=== PATIENT | female | born 1930 | race Caucasian/White ===

== ENCOUNTER 2016-07-06 10:39 | Emergency (ER) | payer MEDICARE, OTHER ==
[2016-07-06] MEDS ORDERED: Sodium Chloride 0.9% 10 ML Syringe FLUSH PRN (10:49)
[2016-07-06] MEDS ORDERED: Sodium Chloride 0.9% 1,000 ML IV ONE (10:51)
[2016-07-06 11:19] LABS: CHLORIDE,CL 101 mmol/L (98-107); SODIUM,NA 136 mmol/L (136-145)
[2016-07-06 12:51] VITALS: BP 100/50
--- NOTE | 2016-07-11 07:51 | ER ---
Date of Service: 07/06/2016 SUBJECTIVE: Caitlin presents to the emergency room, was receiving a therapeutic phlebotomy for hereditary hemochromatosis. She had approximately 500 mL of blood removed and the patient began experiencing some lightheadedness. Her vital signs were rechecked and the patient was found to have a blood pressure of 67/41. Nursing staff state that she was pale, diaphoretic, and clammy, but patient states that she was otherwise feeling okay. She did not have any loss of consciousness. She did not experience any chest pain or shortness of breath prior to, during, or after the therapeutic phlebotomy. The patient did take her antihypertensive medications which include lisinopril and sotalol prior to undergoing her therapeutic phlebotomy today. PAST MEDICAL HISTORY: 1. Hemochromatosis. 2. Hypertension. 3. Hypothyroidism. 4. Thrombocytopenia. 5. Hyperbilirubinemia. 6. Hyperglycemia. 7. Atrial fibrillation. MEDICATIONS: 1. Sotalol. 2. Xarelto. 3. Multivitamin. 4. Lisinopril. 5. Synthroid. 6. Glucosamine and chondroitin. 7. Vitamin D3. ALLERGIES: NKDA. REVIEW OF SYSTEMS: General: No fever or chills. HEENT: No sore throat, rhinorrhea, congestion. Respiratory: No shortness of breath. Cardiac: Denies any chest pain, orthopnea, PND, or increased peripheral edema. GI: No nausea, vomiting, or diarrhea. No melena, hematochezia, or hematemesis. : Denies any dysuria. Musculoskeletal: No myalgias or arthralgias. Neurologic: No decreased level of consciousness. She is alert and did not experience any syncope during this event. PHYSICAL EXAMINATION: General: This is an 85-year-old female patient, who is in no acute distress. Vital Signs: Initial blood pressure was 67/41, heart rate was 66, respiratory rate 28, O2 saturations 91% on room air. After she received approximately 500 mL of normal saline and was fed lunch, her blood pressure was 102/55 with a heart rate of 65. Skin: Warm, pale, and mildly diaphoretic. HEENT: Head is normocephalic, atraumatic. Eyes, PERRLA. Extraocular movements are intact. Mouth, oral mucosa is moist. Lungs: Clear to auscultation. Heart: Regular rate and rhythm. Abdomen: Soft and nontender. There is no hepatosplenomegaly noted. There is no mass noted. Extremities: Without edema. Neurologic: She is alert and oriented, answers all questions appropriately. Speech is fluent. Her gait is within normal limits. LABORATORY DATA: CBC was obtained. WBC is 11.0, hemoglobin is 14.0, platelets are 146. Coags, PT is 12.7, INR is 1.1. Chemistry, sodium is 136, potassium is 4.8, chloride is 101, bicarb is 25, BUN is 13, creatinine is 0.9. GFR is 60, glucose is 242, calcium is 8.6, corrected calcium is 9.48, total bilirubin is 2.0, AST is 27, ALT is 21, alkaline phosphatase is 71. Troponin is 0.017. Total protein is 7.7, albumin is 2.9. ASSESSMENT: Hypotension following therapeutic phlebotomy. PLAN: Again, the patient was given half a liter of normal saline and was fed lunch. She stated that she never did feel poorly during this event and wished to be discharged. She was advised to return to the emergency room if she develops any shortness of breath, lightheadedness, syncope, seizure activity, chest pain, or shortness of breath. All questions were answered. MWK: 07/10/2016 14:06:43 MODL: 07/10/2016 22:00:10 /[id number]
== END 2016-07-06 11:46 | disposition home or self-care (01) ==
LOC: VM.ED 10:39
DX: I95.9 Hypotension, unspecified (principal); I10 Essential (primary) hypertension; E03.9 Hypothyroidism, unspecified; R73.9 Hyperglycemia, unspecified; Z79.899 Other long term (current) drug therapy; E83.110 Hereditary hemochromatosis
CPT/HCPCS: 80053; 84484; 85025; 85610; 99195; 99284; J7030; 99283-GF

== ENCOUNTER 2019-11-23 15:09 | Inpatient (IN) | payer MEDICARE, OTHER ==
[2019-11-23] MEDS ORDERED: Diltiazem 50 MG/10 ML SDV IVPUSH ONE ×2 (15:29→17:11)
--- NOTE | 2019-11-23 15:41 | EDM.PDOC ---
ED HPI GENERAL MEDICAL PROBLEM - General Chief Complaint: Respiratory Problem Time Seen by Provider: 11/23/19 15:09 Source of Information: Reports: Patient History Limitations: Reports: No Limitations - History of Present Illness INITIAL COMMENTS - FREE TEXT/NARRATIVE: Pt. presents to ER via EMS. Apparently pt. had a fall today at her assisted living facility. Pt. was assessed by staff and was found to have a heartrate in the 140s. She has a history of atrial fib and is on sotalol for rate control and anticoagulated with xaralto. It is unclear if the patient is chronically in a- fib, as there are no EKGs on file. Pt. has a history of hereditary hemochromatosis and undergoes intermittent theraputic phlebotomy. It looks like this was last done in May. Pt. has Dr. Ash listed as her PCP, but she has not been seen in the clinic since May of 2018. Pt. states that she "feels fine", but appears quite short of breath with respiratory rate in the 30s-40s. Staff states that she is often short of breath in the AM, but seems more dyspneic this afternoon. Onset: Today Onset Date: 11/23/19 - Related Data Allergies Allergy/AdvReac Type Severity Reaction Status Date / Time No Known Allergies Allergy Verified 11/23/19 15:23 Home Meds: Home Meds Cholecalciferol (Vitamin D3) [Vitamin D3] 1,000 unit PO DAILY 06/15/15 [History] Glucosam/Chondr/Collagn/Hyalur [Glucosamine & Chondroitin Cap] 3 each PO DAILY 06/15/15 [History] Levothyroxine [Synthroid] 50 mcg PO ACBREAKFAST 06/15/15 [History] Lisinopril 5 mg PO DAILY 06/15/15 [History] Multivitamin [Multivitamins] 1 each PO DAILY 06/15/15 [History] Rivaroxaban [Xarelto] 20 mg PO DAILY 06/15/15 [History] Sotalol HCl [Sotalol] 1 tab PO DAILY 06/15/15 [History] Past Medical History HEENT History: Reports: Hard of Hearing Cardiovascular History: Reports: Hypertension Musculoskeletal History: Reports: Other (See Below) Other Musculoskeletal History: Uses a cane Hematologic History: Reports: Hemochromatosis - Past Surgical History Musculoskeletal Surgical History: Reports: None Social & Family History - Family History Family Medical History: Noncontributory ED ROS GENERAL - Review of Systems Review Of Systems: See Below Constitutional: Reports: No Symptoms HEENT: Reports: No Symptoms Respiratory: Reports: Shortness of Breath Cardiovascular: Reports: No Symptoms Endocrine: Reports: No Symptoms GI/Abdominal: Reports: No Symptoms : Reports: No Symptoms Musculoskeletal: Reports: No Symptoms Skin: Reports: No Symptoms Neurological: Reports: No Symptoms Psychiatric: Reports: No Symptoms Hematologic/Lymphatic: Reports: No Symptoms Immunologic: Reports: No Symptoms ED EXAM, GENERAL - Physical Exam Exam: See Below Exam Limited By: Other (hard of hearing) General Appearance: Alert, WD/WN, No Apparent Distress Eye Exam: Bilateral Eye: EOMI, PERRL Head: Atraumatic, Normocephalic Neck: Normal Inspection, Supple, Non-Tender Respiratory/Chest: No Accessory Muscle Use, Chest Non-Tender, Decreased Breath Sounds, Other (speaking in 2-4 work sentences) Cardiovascular: Irregularly Irregular Peripheral Pulses: 4+: Radial (L) GI/Abdominal: Soft, Non-Tender, No Distention, No Mass (Female) Exam: Deferred Rectal (Female) Exam: Deferred Back Exam: Normal Inspection, Full Range of Motion Extremities: Normal Inspection, Normal Range of Motion, Non-Tender, No Pedal Edema, Normal Capillary Refill Neurological: Alert, Oriented, CN II-XII Intact, Normal Cognition, Normal Gait, Normal Reflexes, No Motor/Sensory Deficits Psychiatric: Normal Affect, Normal Mood Skin Exam: Warm, Dry, Intact, Pallor Lymphatic: No Adenopathy EKG INTERPRETATION Rhythm: A-Fib Course - Orders/Labs/Meds Orders: Active Orders 24 hr Category Date Time Status Patient Status [ADT] Routine ADT 11/23/19 18:19 Active CULTURE BLOOD [BC] Stat Lab 11/23/19 15:58 Received CULTURE BLOOD [BC] Stat Lab 11/23/19 16:07 Received CULTURE URINE [RM] Stat Lab 11/23/19 17:48 Received Diltiazem 125 mg Med 11/23/19 17:15 Active Sodium Chloride 0.9% [Normal Saline] 100 ml IV TITRATE Sodium Chloride 0.9% [Saline Flush] Med 11/23/19 15:16 Active 10 ml FLUSH ASDIRECTED PRN Blood Culture x2 Reflex Set [OM.PC] Stat Oth 11/23/19 15:18 Ordered Peripheral IV Insertion Adult [OM.PC] Routine Oth 11/23/19 15:17 Ordered Medication Orders Diltiazem HCl 125 mg/ Sodium (Chloride) 125 mls @ 5 mls/hr IV TITRATE LO Last Admin: 11/23/19 17:29 Dose: 5 mg/hr, 5 mls/hr Documented by: BRANDAN Sodium Chloride (Saline Flush) 10 ml FLUSH ASDIRECTED PRN PRN Reason: Keep Vein Open Labs: Laboratory Tests 11/23/19 11/23/19 11/23/19 Range/Units 15:35 15:58 15:58 WBC 6.7 (4.0-10.0) x10^3/uL RBC 4.27 (4.00-5.50) x10^6/uL Hgb 12.9 (12.0-16.0) g/dL Hct 41.0 (33.0-47.0) % MCV 96.0 H D (78.0-93.0) fL MCH 30.2 (26.0-32.0) pg MCHC 31.5 L (32.0-36.0) g/dL RDW Coeff of Qi 16.8 H (10.0-15.0) % Plt Count 112 L (130-400) x10^3/uL Neut % (Auto) 77.8 (50.0-80.0) % Lymph % (Auto) 12.7 L (25.0-50.0) % [place] % (Auto) 8.5 (2.0-11.0) % Eos % (Auto) 0.7 (0.0-4.0) % Baso % (Auto) 0.3 (0.2-1.2) % PT 21.9 H (9.5-12.3) SEC INR 2.1 (2.0-3.5) POC ABG pH (7.35-7.45) pH POC ABG pCO2 (35-48) mmHg POC ABG pO2 (83-108) mmHg POC ABG HCO3 (21-28) mmol/L POC ABG Total CO2 (22-29) mmol/L POC ABG O2 Sat % POC ABG Base Excess (-2-3) mmol/L POC FiO2 Sodium (136-145) mmol/L Potassium (3.5-5.1) mmol/L Chloride (98-107) mmol/L Carbon Dioxide (21-32) mmol/L Anion Gap (10-20) mmol/L BUN (7-18) mg/dL Creatinine (0.55-1.02) mg/dL Est Cr Clr Drug Dosing Estimated GFR (MDRD) Glucose (74-106) mg/dL Lactic Acid (0.4-2.0) mmol/L Calcium (8.5-10.1) mg/dL Corrected Calcium (8.5-10.1) mg/dL Magnesium (1.8-2.4) mg/dL Ferritin (8-252) ng/mL Total Bilirubin (0.2-1.0) mg/dL AST (15-37) U/L ALT (14-59) U/L Alkaline Phosphatase (46-116) U/L Troponin I (<=0.056) ng/mL C-Reactive Protein (<=0.9) mg/dL NT-Pro-B Natriuret Pep (<=450) pg/mL Total Protein (6.4-8.2) g/dL Albumin (3.4-5.0) g/dL Globulin Albumin/Globulin Ratio Urine Color (YELLOW) Urine Appearance (CLEAR) Urine pH (5.0-8.0) Ur Specific [place] Urine Protein (NEGATIVE) mg/dL Urine Glucose (UA) (NEGATIVE) mg/dL Urine Ketones (NEGATIVE) mg/dL Urine Occult Blood (NEGATIVE) Urine Nitrite (NEGATIVE) Urine Bilirubin (NEGATIVE) Urine Urobilinogen (0.2) EU/dL Ur Leukocyte Esterase (NEGATIVE) Urine RBC (NOT SEEN) /HPF Urine WBC (NOT SEEN) /HPF Ur Squamous Epith Cells (NEGATIVE) /HPF Urine Bacteria (NEGATIVE) /HPF Urine Mucus (NEGATIVE) /LPF SARS CoV-2 RNA Rapid HECTOR Negative (NEGATIVE) 11/23/19 11/23/19 11/23/19 Range/Units 15:58 15:58 15:58 WBC (4.0-10.0) x10^3/uL RBC (4.00-5.50) x10^6/uL Hgb (12.0-16.0) g/dL Hct (33.0-47.0) % MCV (78.0-93.0) fL MCH (26.0-32.0) pg MCHC (32.0-36.0) g/dL RDW Coeff of Qi (10.0-15.0) % Plt Count (130-400) x10^3/uL Neut % (Auto) (50.0-80.0) % Lymph % (Auto) (25.0-50.0) % [place] % (Auto) (2.0-11.0) % Eos % (Auto) (0.0-4.0) % Baso % (Auto) (0.2-1.2) % PT (9.5-12.3) SEC INR (2.0-3.5) POC ABG pH (7.35-7.45) pH POC ABG pCO2 (35-48) mmHg POC ABG pO2 (83-108) mmHg POC ABG HCO3 (21-28) mmol/L POC ABG Total CO2 (22-29) mmol/L POC ABG O2 Sat % POC ABG Base Excess (-2-3) mmol/L POC FiO2 Sodium 141 (136-145) mmol/L Potassium 4.4 (3.5-5.1) mmol/L Chloride 102 (98-107) mmol/L Carbon Dioxide 29 (21-32) mmol/L Anion Gap 14.4 (10-20) mmol/L BUN 24 H (7-18) mg/dL Creatinine 1.1 H (0.55-1.02) mg/dL Est Cr Clr Drug Dosing TNP Estimated GFR (MDRD) 47 Glucose 283 H (74-106) mg/dL Lactic Acid 3.3 H* (0.4-2.0) mmol/L Calcium 8.8 (8.5-10.1) mg/dL Corrected Calcium 9.60 (8.5-10.1) mg/dL Magnesium 1.8 (1.8-2.4) mg/dL Ferritin 46 (8-252) ng/mL Total Bilirubin 2.6 H (0.2-1.0) mg/dL AST 26 (15-37) U/L ALT 20 (14-59) U/L Alkaline Phosphatase 88 (46-116) U/L Troponin I < 0.017 (<=0.056) ng/mL C-Reactive Protein 1.1 H (<=0.9) mg/dL NT-Pro-B Natriuret Pep 1205 H (<=450) pg/mL Total Protein 8.0 (6.4-8.2) g/dL Albumin 3.0 L (3.4-5.0) g/dL Globulin 5.0 Albumin/Globulin Ratio 0.60 Urine Color (YELLOW) Urine Appearance (CLEAR) Urine pH (5.0-8.0) Ur Specific [place] Urine Protein (NEGATIVE) mg/dL Urine Glucose (UA) (NEGATIVE) mg/dL Urine Ketones (NEGATIVE) mg/dL Urine Occult Blood (NEGATIVE) Urine Nitrite (NEGATIVE) Urine Bilirubin (NEGATIVE) Urine Urobilinogen (0.2) EU/dL Ur Leukocyte Esterase (NEGATIVE) Urine RBC (NOT SEEN) /HPF Urine WBC (NOT SEEN) /HPF Ur Squamous Epith Cells (NEGATIVE) /HPF Urine Bacteria (NEGATIVE) /HPF Urine Mucus (NEGATIVE) /LPF SARS CoV-2 RNA Rapid HECTOR (NEGATIVE) 11/23/19 11/23/19 Range/Units 16:10 17:48 WBC (4.0-10.0) x10^3/uL RBC (4.00-5.50) x10^6/uL Hgb (12.0-16.0) g/dL Hct (33.0-47.0) % MCV (78.0-93.0) fL MCH (26.0-32.0) pg MCHC (32.0-36.0) g/dL RDW Coeff of Qi (10.0-15.0) % Plt Count (130-400) x10^3/uL Neut % (Auto) (50.0-80.0) % Lymph % (Auto) (25.0-50.0) % [place] % (Auto) (2.0-11.0) % Eos % (Auto) (0.0-4.0) % Baso % (Auto) (0.2-1.2) % PT (9.5-12.3) SEC INR (2.0-3.5) POC ABG pH 7.32 L (7.35-7.45) pH POC ABG pCO2 57 H (35-48) mmHg POC ABG pO2 65 L (83-108) mmHg POC ABG HCO3 29.1 H (21-28) mmol/L POC ABG Total CO2 29.0 (22-29) mmol/L POC ABG O2 Sat 89.8 % POC ABG Base Excess 3 (-2-3) mmol/L POC FiO2 0.21 Sodium (136-145) mmol/L Potassium (3.5-5.1) mmol/L Chloride (98-107) mmol/L Carbon Dioxide (21-32) mmol/L Anion Gap (10-20) mmol/L BUN (7-18) mg/dL Creatinine (0.55-1.02) mg/dL Est Cr Clr Drug Dosing Estimated GFR (MDRD) Glucose (74-106) mg/dL Lactic Acid (0.4-2.0) mmol/L Calcium (8.5-10.1) mg/dL Corrected Calcium (8.5-10.1) mg/dL Magnesium (1.8-2.4) mg/dL Ferritin (8-252) ng/mL Total Bilirubin (0.2-1.0) mg/dL AST (15-37) U/L ALT (14-59) U/L Alkaline Phosphatase (46-116) U/L Troponin I (<=0.056) ng/mL C-Reactive Protein (<=0.9) mg/dL NT-Pro-B Natriuret Pep (<=450) pg/mL Total Protein (6.4-8.2) g/dL Albumin (3.4-5.0) g/dL Globulin Albumin/Globulin Ratio Urine Color Dark yellow H (YELLOW) Urine Appearance Cloudy H (CLEAR) Urine pH 5.5 (5.0-8.0) Ur Specific [place] >=1.030 Urine Protein 100 H (NEGATIVE) mg/dL Urine Glucose (UA) Negative (NEGATIVE) mg/dL Urine Ketones Negative (NEGATIVE) mg/dL Urine Occult Blood Moderate H (NEGATIVE) Urine Nitrite Positive H (NEGATIVE) Urine Bilirubin Small H (NEGATIVE) Urine Urobilinogen 1.0 (0.2) EU/dL Ur Leukocyte Esterase Negative (NEGATIVE) Urine RBC 20-30 H (NOT SEEN) /HPF Urine WBC 0-5 (NOT SEEN) /HPF Ur Squamous Epith Cells Occasional H (NEGATIVE) /HPF Urine Bacteria Many H (NEGATIVE) /HPF Urine Mucus Few H (NEGATIVE) /LPF SARS CoV-2 RNA Rapid HECTOR (NEGATIVE) Meds: Medications Generic Name Dose Route Start Last Admin Trade Name Leeroy PRN Reason Stop Dose Admin Diltiazem HCl 125 mg/ Sodium 125 mls @ 5 mls/hr 11/23/19 17:15 11/23/19 17:29 Chloride IV 5 mg/hr TITRATE LO 5 mls/hr Administration 5 MG/HR Sodium Chloride 10 ml 11/23/19 15:16 Saline Flush FLUSH ASDIRECTED PRN Keep Vein Open Discontinued Medications Generic Name Dose Route Start Last Admin Trade Name Fremike PRN Reason Stop Dose Admin Ceftriaxone Sodium 1 gm 11/23/19 18:06 Rocephin IVPUSH 11/23/19 18:07 STAT ONE Diltiazem HCl 20 mg 11/23/19 15:29 11/23/19 15:42 Cardizem IVPUSH 11/23/19 15:30 20 mg ONETIME ONE Administration Diltiazem HCl 20 mg 11/23/19 17:11 Cardizem IVPUSH 11/23/19 17:12 ONETIME ONE Furosemide 40 mg 11/23/19 18:17 Lasix IV 11/23/19 18:18 ONETIME ONE Methylprednisolone Sodium Succinate 125 mg 11/23/19 17:42 Solu-Medrol IV 11/23/19 17:43 ONETIME ONE - Radiology Interpretation Free Text/Narrative:: cardiomegaly, mild failure pattern Departure - Departure Time of Disposition: 19:04 Disposition: Admitted As Inpatient 68 Clinical Impression: Atrial fibrillation with RVR, UTI (urinary tract infection), CHF (congestive heart failure), COPD exacerbation - Discharge Information Referrals: Bushra Ash DO [Primary Care Provider] - Forms: ED Department Discharge - Problem List Review Problem List Initiated/Reviewed/Updated: Yes - My Orders Last 24 Hours: My Active Orders 11/23/19 15:16 Sodium Chloride 0.9% [Saline Flush] 10 ml FLUSH ASDIRECTED PRN 11/23/19 15:17 Peripheral IV Insertion Adult [OM.PC] Routine 11/23/19 15:18 Blood Culture x2 Reflex Set [OM.PC] Stat 11/23/19 15:58 CULTURE BLOOD [BC] Stat 11/23/19 16:07 CULTURE BLOOD [BC] Stat 11/23/19 17:15 Diltiazem 125 mg Sodium Chloride 0.9% [Normal Saline] 100 ml IV TITRATE 11/23/19 17:48 CULTURE URINE [RM] Stat 11/23/19 18:19 Patient Status [ADT] Routine - Assessment/Plan Last 24 Hours: My Active Orders 11/23/19 15:16 Sodium Chloride 0.9% [Saline Flush] 10 ml FLUSH ASDIRECTED PRN 11/23/19 15:17 Peripheral IV Insertion Adult [OM.PC] Routine 11/23/19 15:18 Blood Culture x2 Reflex Set [OM.PC] Stat 11/23/19 15:58 CULTURE BLOOD [BC] Stat 11/23/19 16:07 CULTURE BLOOD [BC] Stat 11/23/19 17:15 Diltiazem 125 mg Sodium Chloride 0.9% [Normal Saline] 100 ml IV TITRATE 11/23/19 17:48 CULTURE URINE [RM] Stat 11/23/19 18:19 Patient Status [ADT] Routine Plan: Pt. will be admitted to [facility]. Unable to get a bed at [facility] or [facility] as they are both on diversion. Pt. will be admitted by Dr. Pop. She is a code 2, DNR/DNI. Pt. was given 20mg cardiazem twice for rate control. She was subsequently started on a cardiazem drop at 5mg/hr. She was given rocephin 1000mg IV. She was given solu medrol 125mg IV. All questions were answered.
--- NOTE | 2019-11-23 15:52 | CR ---
[id number] RAD/RAD Chest PA or AP 1V EXAM: FRONTAL CHEST INDICATION: SHORTNESS OF BREATH. COMPARISON: March 27, 2015. DISCUSSION: Cardiomegaly with new or increased mild central vascular congestion. Possible minimal bilateral pleural effusions. Low lung volumes. No focal infiltrates are identified. IMPRESSION: 1. Cardiomegaly with borderline central vascular congestion and possible minimal bilateral effusions. Raymundo Matos MD 11/23/19 155 Thank you for allowing us to participate in the care of your patient.
[2019-11-23 16:24] LABS: PCO2 ARTERIAL,POC 57 mmHg (35-48)
[2019-11-23 16:50] LABS: ANION GAP 14.4 mmol/L (10-20); CHLORIDE,CL 102 mmol/L (98-107); SODIUM,NA 141 mmol/L (136-145)
[2019-11-23] MEDS ORDERED: Diltiazem 125 MG in Sodium Chloride 0.9% 100 ML IV SCH (17:15)
[2019-11-23] MEDS ORDERED: methylPREDNISolone Sodium Succinate 125 MG/2 ML SDV IV ONE (17:42)
[2019-11-23] MEDS ORDERED: cefTRIAXone 1 GM Vial IVPUSH ONE (18:06)
[2019-11-23] MEDS ORDERED: Furosemide 40 MG/4 ML VIAL IV ONE (18:17)
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
[2019-11-23] MEDS: Sotalol 80 MG Tab PO SCH (21:01)
[2019-11-23] MEDS ORDERED: Hypromellose 0.3% Ophth Soln 15 ML Bottle EYEBOTH PRN (23:02)
[2019-11-24 07:15] LABS: HEMOGLOBIN A1C 8.5 % (<5.7)
[2019-11-24 07:41] LABS: ANION GAP 11.7 mmol/L (10-20); CHLORIDE,CL 102 mmol/L (98-107); SODIUM,NA 140 mmol/L (136-145)
[2019-11-24] MEDS ORDERED: Insulin Lispro 100 Units/ML 3 ML Vial SUBCUT ONE (07:43)
[2019-11-24] MEDS ORDERED: Sotalol 80 MG Tab PO SCH (08:00)
[2019-11-24] MEDS ORDERED: EYE EYEBOTH SCH (08:00)
[2019-11-24] MEDS ORDERED: TIMOLOL EYEBOTH SCH (08:00)
[2019-11-24] MEDS ORDERED: BRIMONIDINE EYEBOTH SCH (08:00)
[2019-11-24] MEDS: Rivaroxaban 10 MG Tab PO SCH (08:55)
[2019-11-24] MEDS: Lisinopril 5 MG Tab PO SCH (08:55)
[2019-11-24] MEDS: Sotalol 80 MG Tab PO SCH (08:55)
--- NOTE | 2019-11-24 09:10 | CR ---
[id number] RAD/RAD Chest PA or AP 1V EXAM: SINGLE VIEW CHEST. INDICATION: FOLLOW-UP CHF COMPARISON: CORRELATION IS MADE WITH 2019 FINDINGS: The lungs are clear The cardiac silhouette is stable IMPRESSION: NO PNEUMONIA OR EDEMA CURRENTLY Ramiro Watt MD 11/24/19 0908 Thank you for allowing us to participate in the care of your patient.
[2019-11-24] MEDS: Sodium Chloride 0.9% 10 ML Syringe FLUSH PRN ×3 (10:33→20:16)
[2019-11-24] MEDS: Brimonidine 0.2% Ophth Soln 5 ML Bottle EYEBOTH SCH ×2 (10:33→20:13)
[2019-11-24] MEDS: Furosemide 20 MG/2 ML VIAL IV SCH ×2 (10:33→16:48)
[2019-11-24] MEDS: Timolol Maleate 0.5% Ophth Soln 5 ML Bottle EYEBOTH SCH ×2 (10:34→20:15)
[2019-11-24] MEDS: glipiZIDE 5 MG Tab PO SCH ×2 (10:35→17:34)
[2019-11-24] MEDS: Amiodarone 200 MG Tab PO SCH ×3 (10:35→21:35)
[2019-11-24] MEDS: Dorzolamide 2% Ophth Soln 10 ML Bottle EYEBOTH SCH ×2 (10:46→20:15)
[2019-11-24] MEDS ORDERED: Insulin Lispro 100 Units/ML 3 ML Vial SUBCUT SCH (11:00)
--- NOTE | 2019-11-24 17:18 | PN ---
Progress Note for XIN CONDE Date: 11/24/2019 Room #: VM.216 SUBJECTIVE: This is hospital day #2 on an 89-year-old admitted with shortness of breath and AFib with RVR which was discovered after she was found down on the ground in her apartment. She said a friend told her she should start exercising and she got into a position and really could not get back up, so it is unclear if she fell or got herself onto the ground, but she was there possibly an hour or 2 when her assisted living staff found her. She was actually upset to be brought over to the hospital, but her heart rates were in the 140s. She was having respiratory distress. They gave her 125 of Solu-Medrol and placed her on Cardizem drip after giving her 20 mg x2 of IV Cardizem, but still her heart rates remained in the 120s. This morning, she is in obvious respiratory distress, taking quick shallow breaths, but she denies coughing. She denies fever. She denies any burning with urination. She was started on Rocephin due to abnormal UA and her culture is showing some gram-negatives. Otherwise up until yesterday when this occurred, she had been feeling well. They check her vitals once a month at [facility] and there have not been any concerns. She does have underlying hemochromatosis, but has not required any phlebotomy since March. The patient is a nonsmoker. She does have a known history of AFib. She otherwise has been noncompliant in the past with blood pressure medication. She has never taken medications for diabetes, although she has known diabetes. She has no history of asthma or lung disease. Her weight is 90.5 kg. It should be noted she also did get some IV Lasix, but had not noticed any edema or weight gain, but admits she maybe is a little bit more puffy in the stomach. OBJECTIVE: Vital Signs: Temperature 97.9, pulse 122, blood pressure 116/78, respiratory rate was 30, and her O2 was 93 on 2 L. General: She is in mild distress. She is trying to talk, but she cannot speak in full sentences. Heart: Irregularly irregular. Lungs: Her lung sounds are decreased in the bases, but clear in the upper lungs. There are no crackles or wheezes though appreciated. Abdomen: Nondistended, nontender. Extremities: Warm and dry, just trace edema at the ankles. Mental Status: She is alert. She is orientated x3. She is recognizing me. She is talking about playing cards and other people who live at her assisted living facility. DIAGNOSTIC DATA: It should be noted the patient did have an echo in 12/2018 which did show her to have an EF of 60% to 65%. She does have some mild aortic stenosis and fdbz-co-uoywhdvk agitation. She also has underlying severe pulmonary hypertension. I did not appreciate a cardiac murmur today, but I have heard it in the past. Lab work did show white count 6.1, hemoglobin 12.1, platelets 107. INR is 2.1. The patient is on Xarelto. Yesterday, pCO2 was 57, PO2 of 65. Sodium 140, potassium 4.7, chloride 102, bicarb 31, BUN 27, creatinine 1.1, glucose 333. Lactic down to 2.8 last night, it was not repeated this morning. Calcium 9.5, bilirubin 1.4, AST 26, ALT 21, alkaline phosphatase 78. Troponin negative x2. CRP 1.2, albumin 2.8, TSH 2.4. Urine had 20 to 30 rbc's, but 0-5 wbc's, but positive nitrite. SARS testing negative. Blood cultures negative. Influenza negative. Urine gram-negative rods greater than 100,000. ASSESSMENT: 1. Rgfcb-gx-ygdbxwj diastolic heart failure exacerbation, likely exacerbated by the atrial fibrillation with rapid ventricular response. The patient has a known EF of 60% to 65%. 2. Acute hypoxic respiratory failure secondary to heart failure and also atrial fibrillation with rapid ventricular rate and underlying pulmonary hypertension. The patient has no history of needing oxygen. 3. Gram-negative urinary tract infection. She is on IV Rocephin. 4. Hereditary hemochromatosis. Her recent ferritin was under 50. No indication for transfusion. 5. Hypothyroidism, treated. TSH is normal. 6. Type 2 diabetes with hyperglycemia. She prefers not to use insulin. We will try her on some oral glipizide since she is medication naive. 7. Essential hypertension. Her blood pressures are under good control. We will try to avoid hypotension. We will continue her SULEIMAN inhibitor for now, but may need to hold it if she becomes too hypotensive. 8. Atrial fibrillation with rapid ventricular response. We will stop the Cardizem drip due to her acute heart failure. I will stop her sotalol and place her on amiodarone 400 mg twice daily. The patient is not wheezing. She does not require any further IV steroids. This is likely contributing to her hyperglycemia. 9. Mild Anemia hemoglobin is stable with no signs of bleeding 10. Palliative cares patient says she is ready to go meet Jose PLAN: Switch her over to oral amiodarone. Continue with telemetry. Continue diuresis with 20 mg IV b.i.d. of Lasix. Repeat lab work tomorrow. Consider BiPAP if patient gets too tired and in more respiratory distress if she is able to tolerate it. This will likely also help with her heart rates. We will get a bladder scan to ensure that she is emptying her bladder (her scan was ok around 100 ml). We will continue antibiotics for now. MKA: 11/24/2019 16:30:12 MODL: 11/24/2019 17:01:41 /[id number] MIKE
[2019-11-24] MEDS: cefTRIAXone 1 GM Vial IVPUSH SCH (17:35)
[2019-11-24] MEDS: NETARSUDIL MESYLATE EYEBOTH SCH (20:16)
[2019-11-25 07:09] LABS: ANION GAP 9.4 mmol/L (10-20)
[2019-11-25] MEDS: Digoxin 500 MCG/2 ML Amp IVPUSH SCH ×3 (09:10→19:49)
[2019-11-25] MEDS: Amiodarone 200 MG Tab PO SCH ×2 (09:10→19:39)
[2019-11-25] MEDS: Lisinopril 5 MG Tab PO SCH (09:11)
[2019-11-25] MEDS: glipiZIDE 5 MG Tab PO SCH ×2 (09:11→18:17)
[2019-11-25] MEDS: Rivaroxaban 10 MG Tab PO SCH (09:12)
[2019-11-25] MEDS: Timolol Maleate 0.5% Ophth Soln 5 ML Bottle EYEBOTH SCH ×2 (09:13→19:36)
[2019-11-25] MEDS: Dorzolamide 2% Ophth Soln 10 ML Bottle EYEBOTH SCH ×2 (09:13→19:58)
[2019-11-25] MEDS: Brimonidine 0.2% Ophth Soln 5 ML Bottle EYEBOTH SCH ×2 (09:13→19:39)
[2019-11-25] MEDS: Sodium Chloride 0.9% 10 ML Syringe FLUSH PRN ×4 (09:13→19:49)
[2019-11-25] MEDS: cefTRIAXone 1 GM Vial IVPUSH SCH (18:17)
[2019-11-25] MEDS: NETARSUDIL MESYLATE EYEBOTH SCH (19:39)
--- NOTE | 2019-11-25 19:42 | PN ---
Progress Note for XIN CONDE Date: 11/25/2019 Room #: VM.216 SUBJECTIVE: This is hospital day #3 on an 89-year-old admitted with respiratory distress with AFib and RVR and a heart failure exacerbation. Yesterday, she was stopped on her sotalol and Cardizem drip and initiated on oral amiodarone 400 b.i.d. Her heart rates went from the 120s to 140s, now to the 105 to 120 range. She is symptomatically less short of breath, able to talk in more complete sentences. She was also given IV Lasix 20 mg in the morning, but then had hypotension even down to 80 systolic later in the day, so further IV Lasix was held, but she did not require any IV fluids. She has been weaned down to 2 L of oxygen. She is denying any chest pain. She did use and tolerate some BiPAP overnight. She has no history of COPD or smoking. The patient was actually feeling like she might pass on and meet Jose yesterday. Otherwise, she has been afebrile. Urine culture did come back E coli. She has been receiving IV Rocephin. She is eating and tolerating a diet. She has had a bowel movement. OBJECTIVE: Vital Signs: Her temperature is 97.3. Her weight is 99.79 kg. Her pulse is 113. Her blood pressure is 94/70, respiratory rate 18, and O2 of 93% on 2 L. General: She is in no acute distress. Heart: Irregularly irregular with tachycardia. Lungs: Sounds are more clear to auscultation bilaterally without crackles or wheezes appreciated in her bases like yesterday. Abdomen: Has positive bowel sounds. It is soft, nontender. Extremities: Warm and dry. Just trace edema. Mental Status: She is alert. She is oriented x3. She is slightly eccentric at times, but I have known her for years and this is her norm. LABORATORY WORK: Does show white count at 10.2, this is up slightly from 6.1; hemoglobin 11.7, which is down slightly from 12.1, platelets down to 97. She does have a history of mild thrombocytopenia. INR was 2.1 on admission. She has been on Xarelto. Her sodium was 140, potassium 4.4, chloride 102, bicarb 33, BUN 43, creatinine 1.4, increased, glucose 199, lactic acid down to 1.7, and calcium 8.4. ASSESSMENT: 1. Acute hypoxic respiratory failure due to atrial fibrillation with rapid ventricular response and heart failure. Troponins have been negative. She has a known EF of 60% to 65% at [facility] last year. We will hold off on further intravenous Lasix given her hypotension. If blood pressures are below 100, we are holding her lisinopril. We will give her a saline bolus if she goes below 80. She has not been symptomatic from hypotension. 2. Acute on chronic diastolic heart failure exacerbation. The patient has diuresed with some intravenous Lasix. I believe her weight was put in as an error this morning because she has been around 90 kg and she is symptomatically improving. 3. Escherichia coli urinary tract infection. She will continue intravenous Rocephin. Likely, can switch over to orals tomorrow. 4. Atrial fibrillation with rapid ventricular response. She is still tachycardic despite the oral amiodarone. I will go ahead and give her intravenous digoxin and start on oral digoxin tomorrow. 5. Hereditary hemochromatosis. Her ferritin was less than 50. No indication for phlebotomy. 6. Hypothyroidism. TSH normal. 7. Type 2 diabetes with hyperglycemia. She was refusing further insulin. Her blood sugars are coming down on the glipizide. We will continue with the same. 8. Acute renal failure, probably due to hypotension and diuresis. We will repeat kidney function tomorrow. 9. Essential hypertension. Blood pressures are low. We will hold lisinopril if under 100. 10.Mild anemia and thrombocytopenia. We will continue to monitor blood counts. 11.Palliative care. PLAN: At this point, the patient will continue oral amiodarone. We will add IV digoxin. We will continue monitoring with telemetry. We will hold off on further diuresis and repeat lab work tomorrow. She will use BiPAP during the night again to help with rest and respiratory status. Otherwise, we will continue IV Rocephin. I will get her up and working with therapies. I anticipate she will need at least another 1- to 2-night stay. MKA: 11/25/2019 18:43:58 MODL: 11/25/2019 19:31:34 /[id number]
[2019-11-26 07:32] LABS: ANION GAP 9.6 mmol/L (10-20)
[2019-11-26] MEDS: Timolol Maleate 0.5% Ophth Soln 5 ML Bottle EYEBOTH SCH ×2 (08:00→19:36)
[2019-11-26] MEDS: Brimonidine 0.2% Ophth Soln 5 ML Bottle EYEBOTH SCH ×2 (08:00→19:40)
[2019-11-26] MEDS: Dorzolamide 2% Ophth Soln 10 ML Bottle EYEBOTH SCH ×2 (08:00→19:36)
[2019-11-26] MEDS: Rivaroxaban 10 MG Tab PO SCH (08:01)
[2019-11-26] MEDS: glipiZIDE 5 MG Tab PO SCH ×2 (08:01→18:36)
[2019-11-26] MEDS: Digoxin 125 MCG Tab PO SCH (08:01)
[2019-11-26] MEDS: Amiodarone 200 MG Tab PO SCH ×2 (08:01→19:37)
[2019-11-26] MEDS: Lisinopril 5 MG Tab PO SCH (08:01)
[2019-11-26] MEDS: Furosemide 20 MG/2 ML VIAL IV SCH (09:33)
[2019-11-26] MEDS: Sodium Chloride 0.9% 10 ML Syringe FLUSH PRN ×2 (09:33→19:38)
--- NOTE | 2019-11-26 12:03 | PN ---
Progress Note for XIN CONDE Date: 11/26/2019 Room #: VM.216 SUBJECTIVE: This is hospital day #4 on an 89-year-old admitted after being found down at her assisted living with respiratory distress, then atrial fibrillation and RVR. She was afebrile, but had a positive UA. She has been on IV Rocephin. Her white count had increased up to 10 yesterday, but is now normal today. She is tolerating an oral diet. She was also given IV Lasix, but it has been held yesterday due to lower blood pressures around 90 systolic. This morning, her blood pressure is much better and she is still short of breath. She denies that she is having any significant problems. She did sleep with the BiPAP last night and she seems to tolerate that well. She denies cough. She prefers to sleep in the chair, but she states that is a habit for her like at 5 o'clock in the morning. The patient was initiated on IV digoxin yesterday and was seeing some halos after getting IV doses. She got a 750 mcg load. She got the oral this morning. Heart rates are now consistently under 110, in that 90-110 range, whereas before they were 110 to 120s and even 140s when she was up moving around or talking. The patient did work a little bit with PT in her room yesterday. She reports not having a bowel movement yet, although 1 was charted yesterday. OBJECTIVE: Vital Signs: Blood pressure is 133/72, heart rate 110, weight 98.5 kg, respiratory rate 18, O2 of 97% on 2 L. General: She is in no acute distress. Heart: Regularly irregular with murmur noted. Lungs: Sounds are decreased with crackles in both bases. Abdomen: Positive bowel sounds. Soft, nontender. Extremities: Warm and dry. Just trace edema Mental Status: Alert and orientated x3. She is able to speak in full sentences. LABORATORY RESULTS: Include white count 7.1, hemoglobin 12.8, platelets stable at 99. Sodium 140, potassium 4.6, chloride 102, bicarb 33, BUN 35, creatinine down to 1.2, glucose 222. ALT and AST normal. Albumin down to 2.7. ASSESSMENT AND PLAN: 1. Atrial fibrillation with rapid ventricular rates with improved rate control on amiodarone and digoxin, both oral. We will continue to monitor. 2. Acute hypoxic respiratory failure due to diastolic heart failure and atrial fibrillation. The patient will continue acute treatment. She needs some IV Lasix 20 mg today. 3. Acute on chronic diastolic heart failure, known EF 60% to 65% at [facility] in 11/2018. 4. Escherichia coli urinary tract infection. We will switch her over to oral Ceftin today to complete a 5-day course of antibiotics. 5. Hereditary hemochromatosis. She does not require any phlebotomy. 6. Hypothyroidism with normal TSH. 7. Type 2 diabetes with hyperglycemia. She is on glipizide. Blood sugars are improving. 8. Acute renal failure, probably due to hypotension and diuresis. Creatinine improved. We will recheck tomorrow. 9. Essential hypertension. Blood pressures are now under improved control. She is on lisinopril. She will get some IV Lasix. 10.Mild anemia and thrombocytopenia, stable. We will continue to monitor blood counts. 11.Palliative Care. Plan at this point; the patient will continue on acute cares with oral amiodarone and digoxin. She will be switched over to oral antibiotics. She will get some IV Lasix today. She may continue the BiPAP at night. She has no history of COPD, but did have some CO2 retention on admission. Clinically, she is improving. We will get her up and working with therapies and likely will be ready for transition over to a swing bed stay as soon as tomorrow. Xarelto is in place for her DVT prophylaxis and stroke prophylaxis. MKA: 11/26/2019 11:14:38 MODL: 11/26/2019 11:56:47 /[id number]
--- NOTE | 2019-11-26 14:10 | CR ---
[id number] RAD/RAD Chest PA And Lateral EXAM: RAD Chest PA And Lateral INDICATION: SHORT OF BREATH. COMPARISON: November 24, 2019. DISCUSSION: The heart is enlarged. Central pulmonary vascular congestion with patchy airspace opacification bilaterally. No pleural effusion. IMPRESSION: Findings most consistent with CHF exacerbation. Jerome Saleem DO 11/26/19 1408 Thank you for allowing us to participate in the care of your patient.
[2019-11-26] MEDS: Cefuroxime 250 MG Tab PO SCH (19:37)
[2019-11-26] MEDS: NETARSUDIL MESYLATE EYEBOTH SCH (19:37)
[2019-11-27 06:40] LABS: ANION GAP 6.3 mmol/L (10-20)
[2019-11-27] MEDS: Amiodarone 200 MG Tab PO SCH (08:01)
[2019-11-27] MEDS: Rivaroxaban 10 MG Tab PO SCH (08:02)
[2019-11-27] MEDS: Cefuroxime 250 MG Tab PO SCH (08:02)
[2019-11-27] MEDS: Furosemide 20 MG/2 ML VIAL IV SCH (08:02)
[2019-11-27] MEDS: Digoxin 125 MCG Tab PO SCH (08:03)
[2019-11-27] MEDS: glipiZIDE 5 MG Tab PO SCH (08:06)
[2019-11-27] MEDS: Lisinopril 5 MG Tab PO SCH (08:07)
[2019-11-27] MEDS: Brimonidine 0.2% Ophth Soln 5 ML Bottle EYEBOTH SCH (08:41)
[2019-11-27] MEDS: Timolol Maleate 0.5% Ophth Soln 5 ML Bottle EYEBOTH SCH (08:42)
[2019-11-27] MEDS: Dorzolamide 2% Ophth Soln 10 ML Bottle EYEBOTH SCH (08:42)
[2019-11-27 15:48] VITALS: BP 127/87; PULSE 86
[2019-11-28] MEDS ORDERED: glipiZIDE 5 MG Tab PO SCH (08:00)
--- NOTE | 2019-11-29 13:51 | DISCH ---
PRIMARY DISCHARGE DIAGNOSES: 1. Acute on chronic heart failure exacerbation with known ejection fraction of 60% to 65% in 11/2018 at [facility]. 2. Atrial fibrillation with rapid ventricular response with known history of atrial fibrillation. 3. Type 2 diabetes, not on medications previously, with hyperglycemia due to steroids. Blood sugars improved around 200 on oral glipizide. 4. Acute hypoxic respiratory failure with hypercapnia due to the heart failure and atrial fibrillation. 5. Escherichia coli urinary tract infection treated with a 5-day course of antibiotics, initially intravenous Rocephin. 6. Obesity. REASON FOR ADMISSION: On the date of admission, this 89-year-old female was found on the floor in her apartment. She got down on the ground somehow and could not get back up. She was there potentially for 2 hours. She was having more wheezing. She received some Solu-Medrol and nebs in the ER, which did improve her breathing. However, her heart rates were found to be fast at the 140s. She got IV Cardizem x2 and was started on a Cardizem drip along with her sotalol. However, her symptoms did not improve. The patient also received IV Lasix as her chest x-ray was showing some fluid congestion, but then became quite hypotensive, so diuresis was held, but was able to be re-initiated yesterday. She had good urine output. Repeat chest x-ray was showing improvement in her fluid. She was able to be weaned down on oxygen. She did not require any BiPAP last night. The patient is eating well, tolerating a diet. Heart rates are all in the 110 or less rate, now on telemetry. DISCHARGE PLANS AND INSTRUCTIONS: The patient is going over to swing bed for further therapies. She was also initiated on oral amiodarone and IV digoxin and sotalol was stopped. We will repeat lab work on Saturday. She will otherwise continue her Xarelto for DVT prophylaxis. Her blood counts were all monitored. She was not anemic, but had stable thrombocytopenia. PHYSICAL EXAMINATION: Discharging Vitals: Include a temperature of 97.9, pulse 97, blood pressure 128/76, respiratory rate 18, and O2 of 97% on 2 L. General: She is in no acute distress. Heart: Irregularly irregular. Lungs: Sounds are slightly decreased in the bases, but overall improved from yesterday. No crackles. No wheezes. Abdomen: Nondistended, nontender. Extremities: Warm and dry. Just trace edema at the ankles. Mental Status: She is alert and oriented x3. She is able to speak in full sentences. Greater than 30 minutes spent on this discharge process. MKA: 11/27/2019 15:32:09 MODL: 11/27/2019 21:09:54 /[id number]
== END 2019-11-27 13:30 | disposition home or self-care (01) | DRG 291 ==
LOC: VM.ED 15:09 → SUPCPDRO 15:09 → VM.MS 18:50
PROVIDERS: ADMIT Family Medicine; ATTEND Internal Medicine
DX: I11.0 Hypertensive heart disease with heart failure (principal); J96.01 Acute respiratory failure with hypoxia; J96.02 Acute respiratory failure with hypercapnia; J44.1 Chronic obstructive pulmonary disease with (acute) exacerbation; N39.0 Urinary tract infection, site not specified; H91.90 Unspecified hearing loss, unspecified ear; I10 Essential (primary) hypertension; N17.9 Acute kidney failure, unspecified; Z79.01 Long term (current) use of anticoagulants; Z79.890 Hormone replacement therapy; I50.33 Acute on chronic diastolic (congestive) heart failure; I48.91 Unspecified atrial fibrillation; Z66 Do not resuscitate; B96.20 Unspecified Escherichia coli [E. coli] as the cause of diseases classified elsewhere; E66.9 Obesity, unspecified; Z20.828 Contact with and (suspected) exposure to other viral communicable diseases; E83.110 Hereditary hemochromatosis; E03.9 Hypothyroidism, unspecified; H90.5 Unspecified sensorineural hearing loss; D69.6 Thrombocytopenia, unspecified; I35.0 Nonrheumatic aortic (valve) stenosis; D64.9 Anemia, unspecified; E11.65 Type 2 diabetes mellitus with hyperglycemia; Z91.19 Patient's noncompliance with other medical treatment and regimen; Z79.899 Other long term (current) drug therapy
CPT/HCPCS: 36415; 36600; 51798; 71045; 71046; 80048; 80053; 81001; 82728; 82803; 82962; 83036; 83605; 83735; 83880; 84443; 84484; 85025; 85610; 86140; 87040; 87086; 87088; 87186; 87804; 87804-59; 93005; 93010; 94660; 94760; 96365; 96375; 96376; 97116-GP; 97161-GP; 97530-GP; 99284; 99285-25; A9270-GY; J0696; J1160; J1815-GY; J1940; J2930; J3490; J7050; U0002

== ENCOUNTER 2019-11-27 14:28 | Inpatient (IN) | payer MEDICARE, OTHER ==
[~2019-11-27 14:28] MED LIST: Hypromellose 0.3% Ophth Soln 15 ML Bottle EYEBOTH PRN; Sodium Chloride 0.9% 10 ML Syringe FLUSH PRN
[2019-11-27] MEDS: Amiodarone 200 MG Tab PO SCH (19:32)
[2019-11-27] MEDS: Timolol Maleate 0.5% Ophth Soln 5 ML Bottle EYEBOTH SCH (19:33)
[2019-11-27] MEDS: Brimonidine 0.2% Ophth Soln 5 ML Bottle EYEBOTH SCH (19:33)
[2019-11-27] MEDS: Dorzolamide 2% Ophth Soln 10 ML Bottle EYEBOTH SCH (19:34)
[2019-11-27] MEDS: NETARSUDIL MESYLATE EYEBOTH SCH (19:38)
[2019-11-27] MEDS ORDERED: Cefuroxime 250 MG Tab PO SCH (20:00)
[2019-11-28] MEDS: Brimonidine 0.2% Ophth Soln 5 ML Bottle EYEBOTH SCH ×2 (08:02→19:20)
[2019-11-28] MEDS: Timolol Maleate 0.5% Ophth Soln 5 ML Bottle EYEBOTH SCH ×2 (08:02→19:20)
[2019-11-28] MEDS: Dorzolamide 2% Ophth Soln 10 ML Bottle EYEBOTH SCH ×2 (08:02→19:20)
[2019-11-28] MEDS: glipiZIDE 5 MG Tab PO SCH (08:03)
[2019-11-28] MEDS: Digoxin 125 MCG Tab PO SCH (08:03)
[2019-11-28] MEDS: Rivaroxaban 10 MG Tab PO SCH (08:03)
[2019-11-28] MEDS: Lisinopril 5 MG Tab PO SCH (08:06)
[2019-11-28] MEDS: Amiodarone 200 MG Tab PO SCH ×2 (08:06→19:21)
[2019-11-28] MEDS ORDERED: Insulin Regular, Human 100 Units/ML 3 ML Vial SUBCUT ONE (12:30)
[2019-11-28] MEDS: NETARSUDIL MESYLATE EYEBOTH SCH (19:21)
[2019-11-29] MEDS: Digoxin 125 MCG Tab PO SCH (08:27)
[2019-11-29] MEDS: Rivaroxaban 10 MG Tab PO SCH (08:30)
[2019-11-29] MEDS: Amiodarone 200 MG Tab PO SCH ×2 (08:30→19:43)
[2019-11-29] MEDS: Lisinopril 5 MG Tab PO SCH (08:30)
[2019-11-29] MEDS: glipiZIDE 5 MG Tab PO SCH (08:30)
[2019-11-29] MEDS: Dorzolamide 2% Ophth Soln 10 ML Bottle EYEBOTH SCH ×2 (08:33→19:43)
[2019-11-29] MEDS: Brimonidine 0.2% Ophth Soln 5 ML Bottle EYEBOTH SCH ×2 (08:33→19:43)
[2019-11-29] MEDS: Timolol Maleate 0.5% Ophth Soln 5 ML Bottle EYEBOTH SCH ×2 (08:34→19:43)
[2019-11-29] MEDS: NETARSUDIL MESYLATE EYEBOTH SCH (19:44)
[2019-11-30] MEDS: glipiZIDE 5 MG Tab PO SCH (09:42)
[2019-11-30] MEDS: Rivaroxaban 10 MG Tab PO SCH (09:42)
[2019-11-30] MEDS: Lisinopril 5 MG Tab PO SCH (09:42)
[2019-11-30] MEDS: Amiodarone 200 MG Tab PO SCH ×2 (09:42→20:33)
[2019-11-30] MEDS: Digoxin 125 MCG Tab PO SCH (09:43)
[2019-11-30] MEDS: Dorzolamide 2% Ophth Soln 10 ML Bottle EYEBOTH SCH ×2 (09:44→20:34)
[2019-11-30] MEDS: Brimonidine 0.2% Ophth Soln 5 ML Bottle EYEBOTH SCH ×2 (09:45→20:35)
[2019-11-30] MEDS: Timolol Maleate 0.5% Ophth Soln 5 ML Bottle EYEBOTH SCH ×2 (09:45→20:34)
[2019-11-30] MEDS: Metoprolol Succinate 25 MG Tab.ER PO SCH (09:55)
--- NOTE | 2019-11-30 10:17 | PN ---
Progress Note for XIN CONDE Date: 11/30/2019 Room #: VM.217 SUBJECTIVE: An 89-year-old on swing bed after an admit for CHF and AFib with RVR. She was taken off sotalol and initiated on amiodarone and digoxin. This morning, heart rates are still around 100. Her breathing is much better. Blood pressures are running high, like into the 160s, but she is able to speak in full sentences. She is getting up, walking with therapy and the walker. The patient is denying any pain, but she is not sleeping well. She feels that if she gets some protein with some nuts and things, this would help a lot. She is otherwise eating 100% of her meals and having bowel movements. OBJECTIVE: Vital Signs: Her temperature is 98, pulse 104, blood pressure 155/99, respiratory rate 20, and O2 of 97% on 1 L. General: She is in no acute distress. Heart: Irregularly irregular. Lungs: Lung sounds are clear to auscultation bilaterally without crackles or wheezes. Extremities: Warm and dry. No edema. Abdomen: Moderately distended, but positive bowel sounds. Nontender. Neurologic: Alert and orientated x3. LABORATORY DATA: Lab work today did show her white count 6.7, hemoglobin 13.1, platelets 96 which was within her range. Sodium 139, potassium 4, chloride 102, bicarb 34, BUN 14, creatinine 0.9, glucose 141, calcium 8.6. ASSESSMENT: 1. Atrial fibrillation with rapid ventricular rates, likely contributing to heart failure. I am going to go ahead and start her on Toprol 25 mg daily to help blood pressure and heart rates. 2. Vmhjv-nk-gogydyy heart failure exacerbation with known EF 60% to 65% in 11/[address] [facility]. She is on oral Lasix. We will continue with the same dose, but consider increasing if blood pressure remains high. 3. Essential hypertension, not well controlled. We are starting Toprol. 4. Type 2 diabetes, now on oral agents with glipizide. Blood sugars have improved. We will decrease her to once daily checks. 5. Escherichia coli urinary tract infection, treated with antibiotics. 6. Acute hypoxic respiratory failure with hypercapnia due to the heart failure and atrial fibrillation. This has resolved. She is nearly off oxygen. 7. Obesity. 8. Hemochromatosis. She is not requiring any phlebotomy. 9. Acute renal failure from hypotension and diuresis, resolved. 10.Hypothyroidism, treated. PLAN: The patient will continue on swing bed cares. We will continue with therapies. She likely will not need lab work repeated until later in the week. We will continue to keep a close eye on blood pressures, heart rates, and oxygen. I will decrease her blood sugar checks to once daily. MKA: 11/30/2019 09:25:41 MODL: 11/30/2019 10:07:32 /[id number]
[2019-11-30] MEDS: NETARSUDIL MESYLATE EYEBOTH SCH (20:36)
[2019-12-01] MEDS: Lisinopril 5 MG Tab PO SCH (09:13)
[2019-12-01] MEDS: Amiodarone 200 MG Tab PO SCH ×2 (09:13→19:49)
[2019-12-01] MEDS: Rivaroxaban 10 MG Tab PO SCH (09:14)
[2019-12-01] MEDS: glipiZIDE 5 MG Tab PO SCH (09:14)
[2019-12-01] MEDS: Metoprolol Succinate 25 MG Tab.ER PO SCH (09:14)
[2019-12-01] MEDS: Digoxin 125 MCG Tab PO SCH (09:14)
[2019-12-01] MEDS: Brimonidine 0.2% Ophth Soln 5 ML Bottle EYEBOTH SCH ×2 (09:16→19:48)
[2019-12-01] MEDS: Timolol Maleate 0.5% Ophth Soln 5 ML Bottle EYEBOTH SCH ×2 (09:16→19:48)
[2019-12-01] MEDS: Dorzolamide 2% Ophth Soln 10 ML Bottle EYEBOTH SCH ×2 (09:16→19:49)
[2019-12-01] MEDS: NETARSUDIL MESYLATE EYEBOTH SCH (19:56)
[2019-12-02] MEDS: Brimonidine 0.2% Ophth Soln 5 ML Bottle EYEBOTH SCH ×2 (09:02→20:07)
[2019-12-02] MEDS: Dorzolamide 2% Ophth Soln 10 ML Bottle EYEBOTH SCH ×2 (09:02→20:07)
[2019-12-02] MEDS: Timolol Maleate 0.5% Ophth Soln 5 ML Bottle EYEBOTH SCH ×2 (09:02→20:06)
[2019-12-02] MEDS: Rivaroxaban 10 MG Tab PO SCH (09:02)
[2019-12-02] MEDS: glipiZIDE 5 MG Tab PO SCH (09:02)
[2019-12-02] MEDS: Lisinopril 5 MG Tab PO SCH (09:03)
[2019-12-02] MEDS: Metoprolol Succinate 25 MG Tab.ER PO SCH (09:03)
[2019-12-02] MEDS: Digoxin 125 MCG Tab PO SCH (09:04)
[2019-12-02] MEDS: Amiodarone 200 MG Tab PO SCH ×2 (09:04→20:10)
[2019-12-02] MEDS: NETARSUDIL MESYLATE EYEBOTH SCH (20:07)
[2019-12-03] MEDS: Dorzolamide 2% Ophth Soln 10 ML Bottle EYEBOTH SCH ×2 (07:46→19:34)
[2019-12-03] MEDS: Brimonidine 0.2% Ophth Soln 5 ML Bottle EYEBOTH SCH ×2 (07:46→19:34)
[2019-12-03] MEDS: Timolol Maleate 0.5% Ophth Soln 5 ML Bottle EYEBOTH SCH ×2 (07:46→19:35)
[2019-12-03] MEDS: Amiodarone 200 MG Tab PO SCH ×2 (07:47→19:33)
[2019-12-03] MEDS: Digoxin 125 MCG Tab PO SCH (07:47)
[2019-12-03] MEDS: Rivaroxaban 10 MG Tab PO SCH (07:47)
[2019-12-03] MEDS: Metoprolol Succinate 25 MG Tab.ER PO SCH (07:48)
[2019-12-03] MEDS: glipiZIDE 5 MG Tab PO SCH (07:49)
[2019-12-03] MEDS: Lisinopril 5 MG Tab PO SCH (07:49)
[2019-12-03] MEDS: Furosemide 20 MG Tab PO SCH (09:36)
--- NOTE | 2019-12-03 09:52 | PN ---
Progress Note for XIN CONDE Date: 12/03/2019 Room #: VM.217 SUBJECTIVE: This is an 89-year-old on swing bed after an acute admission for respiratory failure with congestive heart failure and atrial fibrillation with rapid ventricular response. The patient was taken off sotalol and initiated on amiodarone. Digoxin was eventually added and then metoprolol due to elevated blood pressures. She was diuresed with IV Lasix, but currently is not on any Lasix as she was quite hypotensive with diuresis, but now is hypertensive again. The patient denies any chest pain or shortness of breath. She is not having any leg swelling. She is having good bowel movements. She is eating 100% of her meals. She is working with therapies and hopeful to go back to assisted living next week. OBJECTIVE: Vital Signs: Her temperature is 96.7, pulse 83, blood pressure 157/75, respiratory rate 20, and O2 of 95% on room air. General: She is in no acute distress. Heart: Irregularly irregular with murmur. Lungs: Sounds are decreased in both bases with some rare wheezing. Abdomen: Has positive bowel sounds. Extremities: Warm and dry. No edema. Mental Status: Alert and orientated x3. LABORATORY DATA: Blood sugars have been excellent. A.m. readings around 100 on the glipizide. ASSESSMENT AND PLAN: 1. Atrial fibrillation with rapid ventricular response, contributing to congestive heart failure, resolved on amiodarone, digoxin and Toprol. We will continue with the same. 2. Acute on chronic diastolic heart failure exacerbation with ejection fraction 60% to 65% percent in 11/2018 at [facility]. We will resume her oral Lasix 20 mg daily. She was actually not on this prior to the admission. We will get her an outpatient echo scheduled. 3. Essential hypertension, not well controlled. This should improve with the Lasix. Prior today though it actually had been in the 130s and pretty acceptable. 4. Type 2 diabetes, now on oral agents with glipizide. Blood sugars are excellent. We will keep checking once daily. 5. Escherichia coli urinary tract infection, treated. She is off antibiotics. No longer having symptoms. 6. Acute hypoxic respiratory failure with hypercapnia due to heart failure. This has resolved. She is off oxygen. 7. Obesity. 8. Hemochromatosis, not requiring phlebotomy. 9. Acute renal failure from hypotension and diuresis, resolved. We will repeat lab work on Saturday. 10.Hypothyroidism, treated. PLAN: At this point, the patient will continue on swing bed cares to work with therapies. We will restart Lasix 20 mg daily and get her lab work again on Saturday. MKA: 12/03/2019 09:02:29 MODL: 12/03/2019 09:46:35 /[id number]
[2019-12-03] MEDS: NETARSUDIL MESYLATE EYEBOTH SCH (19:35)
[2019-12-04] MEDS: Brimonidine 0.2% Ophth Soln 5 ML Bottle EYEBOTH SCH ×2 (08:40→19:35)
[2019-12-04] MEDS: Rivaroxaban 10 MG Tab PO SCH (08:41)
[2019-12-04] MEDS: Amiodarone 200 MG Tab PO SCH ×2 (08:41→19:33)
[2019-12-04] MEDS: Metoprolol Succinate 25 MG Tab.ER PO SCH (08:41)
[2019-12-04] MEDS: Furosemide 20 MG Tab PO SCH (08:41)
[2019-12-04] MEDS: Lisinopril 5 MG Tab PO SCH (08:41)
[2019-12-04] MEDS: glipiZIDE 5 MG Tab PO SCH (08:42)
[2019-12-04] MEDS: Timolol Maleate 0.5% Ophth Soln 5 ML Bottle EYEBOTH SCH ×2 (08:42→19:35)
[2019-12-04] MEDS: Digoxin 125 MCG Tab PO SCH (08:42)
[2019-12-04] MEDS: Dorzolamide 2% Ophth Soln 10 ML Bottle EYEBOTH SCH ×2 (08:42→19:32)
[2019-12-04] MEDS: NETARSUDIL MESYLATE EYEBOTH SCH (19:34)
[2019-12-05] MEDS: Dorzolamide 2% Ophth Soln 10 ML Bottle EYEBOTH SCH ×2 (08:21→19:13)
[2019-12-05] MEDS: Timolol Maleate 0.5% Ophth Soln 5 ML Bottle EYEBOTH SCH ×2 (08:22→19:11)
[2019-12-05] MEDS: Brimonidine 0.2% Ophth Soln 5 ML Bottle EYEBOTH SCH ×2 (08:22→19:13)
[2019-12-05] MEDS: Lisinopril 5 MG Tab PO SCH (08:23)
[2019-12-05] MEDS: Amiodarone 200 MG Tab PO SCH ×2 (08:24→19:21)
[2019-12-05] MEDS: Digoxin 125 MCG Tab PO SCH (08:25)
[2019-12-05] MEDS: Furosemide 20 MG Tab PO SCH (08:26)
[2019-12-05] MEDS: glipiZIDE 5 MG Tab PO SCH (08:26)
[2019-12-05] MEDS: Rivaroxaban 10 MG Tab PO SCH (08:26)
[2019-12-05] MEDS: Metoprolol Succinate 25 MG Tab.ER PO SCH (08:26)
[2019-12-05] MEDS: NETARSUDIL MESYLATE EYEBOTH SCH (19:12)
[2019-12-06] MEDS: Dorzolamide 2% Ophth Soln 10 ML Bottle EYEBOTH SCH ×2 (07:55→19:47)
[2019-12-06] MEDS: Brimonidine 0.2% Ophth Soln 5 ML Bottle EYEBOTH SCH ×2 (07:55→19:47)
[2019-12-06] MEDS: Timolol Maleate 0.5% Ophth Soln 5 ML Bottle EYEBOTH SCH ×2 (07:55→19:45)
[2019-12-06] MEDS: Digoxin 125 MCG Tab PO SCH (07:55)
[2019-12-06] MEDS: Amiodarone 200 MG Tab PO SCH ×2 (07:56→19:45)
[2019-12-06] MEDS: Lisinopril 5 MG Tab PO SCH (07:56)
[2019-12-06] MEDS: Furosemide 20 MG Tab PO SCH (07:56)
[2019-12-06] MEDS: Rivaroxaban 10 MG Tab PO SCH (07:57)
[2019-12-06] MEDS: Metoprolol Succinate 25 MG Tab.ER PO SCH (07:57)
[2019-12-06] MEDS: glipiZIDE 5 MG Tab PO SCH (07:58)
[2019-12-06] MEDS: NETARSUDIL MESYLATE EYEBOTH SCH (19:47)
[2019-12-07] MEDS: Amiodarone 200 MG Tab PO SCH ×2 (07:56→19:28)
[2019-12-07] MEDS: Digoxin 125 MCG Tab PO SCH (07:57)
[2019-12-07] MEDS: Rivaroxaban 10 MG Tab PO SCH (07:57)
[2019-12-07] MEDS: Furosemide 20 MG Tab PO SCH (07:57)
[2019-12-07] MEDS: Lisinopril 5 MG Tab PO SCH (07:57)
[2019-12-07] MEDS: glipiZIDE 5 MG Tab PO SCH (07:57)
[2019-12-07] MEDS: Metoprolol Succinate 25 MG Tab.ER PO SCH (07:57)
[2019-12-07] MEDS: Timolol Maleate 0.5% Ophth Soln 5 ML Bottle EYEBOTH SCH ×2 (07:58→19:30)
[2019-12-07] MEDS: Brimonidine 0.2% Ophth Soln 5 ML Bottle EYEBOTH SCH ×2 (07:58→19:29)
[2019-12-07] MEDS: Dorzolamide 2% Ophth Soln 10 ML Bottle EYEBOTH SCH ×2 (07:58→19:29)
[2019-12-07] MEDS: NETARSUDIL MESYLATE EYEBOTH SCH (19:29)
[2019-12-08] MEDS: Timolol Maleate 0.5% Ophth Soln 5 ML Bottle EYEBOTH SCH (07:47)
[2019-12-08] MEDS: Dorzolamide 2% Ophth Soln 10 ML Bottle EYEBOTH SCH (07:47)
[2019-12-08] MEDS: Digoxin 125 MCG Tab PO SCH (07:48)
[2019-12-08] MEDS: Rivaroxaban 10 MG Tab PO SCH (07:48)
[2019-12-08] MEDS: Brimonidine 0.2% Ophth Soln 5 ML Bottle EYEBOTH SCH (07:48)
[2019-12-08] MEDS: Metoprolol Succinate 25 MG Tab.ER PO SCH (07:48)
[2019-12-08] MEDS: Amiodarone 200 MG Tab PO SCH (07:48)
[2019-12-08] MEDS: Lisinopril 5 MG Tab PO SCH (07:49)
[2019-12-08] MEDS: Furosemide 20 MG Tab PO SCH (07:49)
[2019-12-08 07:50] VITALS: BP 105/70; PULSE 70
[2019-12-08] MEDS: glipiZIDE 5 MG Tab PO SCH (07:50)
--- NOTE | 2019-12-08 15:13 | DISCH ---
PRIMARY DISCHARGE DIAGNOSES: 1. Acute hypoxic respiratory failure secondary to congestive heart failure and atrial fibrillation with rapid ventricular response. 2. Acute on chronic heart failure exacerbation with ejection fraction 60% to 65% in 11/2018 at . 3. Atrial fibrillation with rapid ventricular response with known atrial fibrillation. 4. Type 2 diabetes, uncontrolled due to steroids, but improved on oral glipizide. 5. Escherichia coli urinary tract infection, treated with antibiotics. 6. Obesity. 7. Hemochromatosis REASON FOR ADMISSION: On the date of admission, this 89-year-old female was on the floor in her apartment. She had told us she was just trying to get down there and do some exercises. She was there for potentially about 2 hours before staff found her. When she came into the hospital, her heart rates were in the 140s. She got IV Cardizem, then was on a Cardizem drip. She was also taking her sotalol, which had been started last year. Due to hypotension, she was taken off the Cardizem drip and initiated on oral amiodarone 400 mg twice daily. She was loaded with amiodarone and tolerated it fine. She eventually did continue with tachycardia and required digoxin IV load and her blood pressures came up, and she was able to be started on metoprolol. Now, heart rates are much more controlled in the 60s to 80 range and her blood pressures are also back in the normal range, and she is able to take her lisinopril. She had remained on her Xarelto the entire time. She would get IV Lasix on acute care when her blood pressure would allow and now she is on 20 mg daily. She has actually diuresed nearly 10 pounds since her admission. Overall, she is breathing well. She is feeling much better and ready to go home. PHYSICAL EXAMINATION: Vital Signs: Discharging weight was 86.1 kg. Her pulse 70, blood pressure 105/70. Yesterday, her blood pressures were 125/70, her respiratory rate 16, and O2 of 95% on room air. General: She is in no acute distress. Heart: Irregularly irregular with murmur noted. Lungs: Sounds are clear to auscultation bilaterally without crackles or wheezes. Abdomen: Has positive bowel sounds. Soft, nontender. Extremities: Warm and dry. No edema. Mental Status: She is alert and orientated x3. It should be noted that the full exam was completed with her on 12/06. On 12/07, it was just a limited exam today because she was in the bathtub. DISCHARGE PLANS AND INSTRUCTIONS: She is going back to [facility]. She is going to have PT for home physical therapy. She will stay off sotalol and instead be on metoprolol 25 mg daily. She will also be on Lasix 20 mg daily and amiodarone is decreased to 200 mg daily. She will be due for a CMP, CBC, A1c, ferritin, and TSH in 3 months' time due to amiodarone monitoring. Right now, she has no lab work due. We will see her over the telehealth for a video visit in 1 to 2 weeks. She will watch the sugar in her diet, and we were able to discontinue glipizide as blood sugars were around 80s to 100s in the morning. She also has an echo test scheduled to check her heart. The patient was able to be weaned off oxygen while on swing bed. Date of [id number] encounter occurred with myself on 12/06 and 12/08/2019. Primary reasons for home health are for teaching and assessment by nursing for new onset of heart failure and for physical therapy due to deconditioning due to this recent event. Absences from home are infrequent and require taxing effort due to her underlying heart failure and atrial fibrillation. I will periodically review this plan of care. MKA: 12/08/2019 11:10:24 MODL: 12/08/2019 15:06:54 /[id number] MIKE
== END 2019-12-08 10:00 | disposition home health service (06) | DRG 291 ==
LOC: VM.MS 14:28
PROVIDERS: ADMIT Internal Medicine; ATTEND Internal Medicine
DX: I11.0 Hypertensive heart disease with heart failure (principal); J96.01 Acute respiratory failure with hypoxia; J96.02 Acute respiratory failure with hypercapnia; N39.0 Urinary tract infection, site not specified; N17.9 Acute kidney failure, unspecified; I48.91 Unspecified atrial fibrillation; I50.33 Acute on chronic diastolic (congestive) heart failure; E66.9 Obesity, unspecified; B96.20 Unspecified Escherichia coli [E. coli] as the cause of diseases classified elsewhere; T38.0X5A Adverse effect of glucocorticoids and synthetic analogues, initial encounter; I95.9 Hypotension, unspecified; E03.9 Hypothyroidism, unspecified; H90.5 Unspecified sensorineural hearing loss; D69.6 Thrombocytopenia, unspecified; I35.0 Nonrheumatic aortic (valve) stenosis; E80.6 Other disorders of bilirubin metabolism; E83.110 Hereditary hemochromatosis; E11.65 Type 2 diabetes mellitus with hyperglycemia; Z79.84 Long term (current) use of oral hypoglycemic drugs; Z79.01 Long term (current) use of anticoagulants; Z79.899 Other long term (current) drug therapy; Z79.890 Hormone replacement therapy; Z98.41 Cataract extraction status, right eye; Z98.42 Cataract extraction status, left eye; Z20.828 Contact with and (suspected) exposure to other viral communicable diseases; Z68.31 Body mass index [BMI] 31.0-31.9, adult
CPT/HCPCS: 36415; 80048; 82962; 85025; 94760; 97110-GP; 97116-GP; 97165-GO; 97530-GP; 97535-GO; A9270-GY; J1815-GY; U0002

== ENCOUNTER 2021-07-03 10:04 | Inpatient (IN) | payer MEDICARE, OTHER ==
[2021-07-03] MEDS ORDERED: Sodium Chloride 0.9% 10 ML Syringe FLUSH PRN (10:32)
[2021-07-03] MEDS ORDERED: Hypromellose 0.3% Ophth Soln 15 ML Bottle EYEBOTH PRN (11:47)
[2021-07-03] MEDS ORDERED: Furosemide 20 MG/2 ML VIAL IV ONE (12:00)
[2021-07-03 15:29] LABS: CORONAVIRUS COVID-19 NAA POSITIVE (NEGATIVE)
[2021-07-03] MEDS ORDERED: GLYCERIN EYEBOTH PRN (16:50)
[2021-07-03] MEDS ORDERED: [UNRECOGNIZED DRUG - OTHER] EYEBOTH PRN (16:50)
[2021-07-03] MEDS ORDERED: PROPYLENE GLYCOL EYEBOTH PRN (16:50)
[2021-07-03] MEDS: Rivaroxaban 10 MG Tab PO SCH (20:59)
[2021-07-03] MEDS: RHOPRESSA 0.02% EYEBOTH SCH (20:59)
[2021-07-03] MEDS ORDERED: NETARSUDIL MESYLATE EYEBOTH SCH (21:00)
[2021-07-03] MEDS: BRINZOLAMIDE EYEBOTH SCH (21:00)
[2021-07-03] MEDS: Brimonidine Tartrate/Timolol [Combigan 0.2%-0.5% Eye Drop] EYEBOTH SCH (21:01)
[2021-07-04 07:37] LABS: ANION GAP 12.9 mmol/L (5-15); CHLORIDE,CL 107 mmol/L (98-107); SODIUM,NA 142 mmol/L (136-145)
[2021-07-04] MEDS: Amiodarone 200 MG Tab PO SCH (08:08)
[2021-07-04] MEDS: glipiZIDE 5 MG Tab PO SCH (08:09)
[2021-07-04] MEDS: Lisinopril 5 MG Tab PO SCH (08:10)
[2021-07-04] MEDS: Brimonidine Tartrate/Timolol [Combigan 0.2%-0.5% Eye Drop] EYEBOTH SCH ×2 (08:11→22:51)
[2021-07-04] MEDS: BRINZOLAMIDE EYEBOTH SCH ×2 (08:11→22:52)
[2021-07-04] MEDS ORDERED: Furosemide 40 MG/4 ML VIAL IV ONE (08:51)
[2021-07-04] MEDS ORDERED: Metoprolol Succinate 25 MG Tab.ER PO SCH (09:00)
[2021-07-04] MEDS ORDERED: Metoprolol Succinate 25 MG Tab.ER PO ONE (09:00)
[2021-07-04] MEDS: Levothyroxine 50 MCG Tab PO SCH (17:27)
[2021-07-04] MEDS: Rivaroxaban 10 MG Tab PO SCH (22:50)
[2021-07-04] MEDS: RHOPRESSA 0.02% EYEBOTH SCH (22:52)
[2021-07-05 07:09] LABS: ANION GAP 8.8 mmol/L (5-15)
[2021-07-05] MEDS ORDERED: Furosemide 100 MG/10 ML SDV IV ONE (08:37)
[2021-07-05] MEDS: Digoxin 500 MCG/2 ML Amp IVPUSH SCH ×2 (11:42→19:27)
[2021-07-05] MEDS: Levothyroxine 50 MCG Tab PO SCH (11:44)
[2021-07-05] MEDS: glipiZIDE 5 MG Tab PO SCH (11:44)
[2021-07-05] MEDS: Metoprolol Succinate 50 MG Tab.ER PO SCH (11:44)
[2021-07-05] MEDS: Amiodarone 200 MG Tab PO SCH (11:45)
[2021-07-05] MEDS: Lisinopril 5 MG Tab PO SCH (11:45)
[2021-07-05] MEDS: Brimonidine Tartrate/Timolol [Combigan 0.2%-0.5% Eye Drop] EYEBOTH SCH ×3 (11:45→20:16)
[2021-07-05] MEDS: BRINZOLAMIDE EYEBOTH SCH ×3 (11:46→20:16)
[2021-07-05] MEDS ORDERED: Furosemide 40 MG/4 ML VIAL IV SCH (13:00)
[2021-07-05] MEDS: RHOPRESSA 0.02% EYEBOTH SCH ×2 (19:34→20:17)
[2021-07-05] MEDS: Rivaroxaban 10 MG Tab PO SCH ×2 (19:35→20:17)
[2021-07-05] MEDS: Melatonin 3 MG Tab PO PRN (22:29)
[2021-07-06 07:24] LABS: ANION GAP 9.5 mmol/L (5-15)
[2021-07-06] MEDS ORDERED: Potassium Chloride 10 MEQ Tab.ER PO SCH (09:00)
[2021-07-06] MEDS ORDERED: Furosemide 40 MG/4 ML VIAL IV SCH (09:00)
[2021-07-06] MEDS: glipiZIDE 5 MG Tab PO SCH (12:19)
[2021-07-06] MEDS: Digoxin 125 MCG Tab PO SCH (12:19)
[2021-07-06] MEDS: Metoprolol Succinate 50 MG Tab.ER PO SCH (12:20)
[2021-07-06] MEDS: Magnesium Oxide 400 MG Tab PO SCH (12:20)
[2021-07-06] MEDS: Amiodarone 200 MG Tab PO SCH (12:20)
[2021-07-06] MEDS: Brimonidine Tartrate/Timolol [Combigan 0.2%-0.5% Eye Drop] EYEBOTH SCH ×2 (12:20→21:55)
[2021-07-06] MEDS: Torsemide 20 MG Tab PO SCH ×2 (12:20→19:54)
[2021-07-06] MEDS: Levothyroxine 50 MCG Tab PO SCH (12:20)
[2021-07-06] MEDS: BRINZOLAMIDE EYEBOTH SCH ×2 (12:21→21:55)
[2021-07-06] MEDS: Rivaroxaban 10 MG Tab PO SCH (21:55)
[2021-07-06] MEDS: RHOPRESSA 0.02% EYEBOTH SCH (21:55)
[2021-07-06] MEDS: Melatonin 3 MG Tab PO PRN (22:12)
[2021-07-07] MEDS ORDERED: Albuterol/Ipratropium 3.0-0.5 MG/3 ML Neb Soln ONE (05:31)
[2021-07-07] MEDS: Albuterol/Ipratropium 3.0-0.5 MG/3 ML Neb Soln NEB PRN ×2 (05:34→20:13)
[2021-07-07 07:17] LABS: ANION GAP 10.3 mmol/L (5-15)
[2021-07-07] MEDS: glipiZIDE 5 MG Tab PO SCH (09:48)
[2021-07-07] MEDS: Torsemide 20 MG Tab PO SCH ×2 (09:48→17:37)
[2021-07-07] MEDS: Levothyroxine 50 MCG Tab PO SCH (09:50)
[2021-07-07] MEDS: Magnesium Oxide 400 MG Tab PO SCH (09:50)
[2021-07-07] MEDS: Digoxin 125 MCG Tab PO SCH (09:50)
[2021-07-07] MEDS: Amiodarone 200 MG Tab PO SCH (09:50)
[2021-07-07] MEDS: Albuterol/Ipratropium 3.0-0.5 MG/3 ML Neb Soln NEB SCH ×3 (10:23→23:01)
[2021-07-07] MEDS: Lisinopril 5 MG Tab PO SCH (10:55)
[2021-07-07] MEDS: dexAMETHasone 2 MG, dexAMETHasone 4 MG PO SCH ×2 (12:17)
[2021-07-07] MEDS: Brimonidine Tartrate/Timolol [Combigan 0.2%-0.5% Eye Drop] EYEBOTH SCH ×2 (12:17→20:14)
[2021-07-07] MEDS: BRINZOLAMIDE EYEBOTH SCH ×2 (12:17→20:14)
[2021-07-07] MEDS: Metoprolol Succinate 50 MG Tab.ER PO SCH (12:18)
[2021-07-07] MEDS: Melatonin 3 MG Tab PO PRN (20:13)
[2021-07-07] MEDS: RHOPRESSA 0.02% EYEBOTH SCH (20:14)
[2021-07-07] MEDS: Rivaroxaban 10 MG Tab PO SCH (20:14)
[2021-07-08] MEDS: Albuterol/Ipratropium 3.0-0.5 MG/3 ML Neb Soln NEB SCH ×5 (07:20→22:39)
[2021-07-08] MEDS: dexAMETHasone 2 MG, dexAMETHasone 4 MG PO SCH ×2 (08:13)
[2021-07-08] MEDS: Magnesium Oxide 400 MG Tab PO SCH (08:13)
[2021-07-08] MEDS: Lisinopril 5 MG Tab PO SCH (08:14)
[2021-07-08] MEDS: Amiodarone 200 MG Tab PO SCH (08:14)
[2021-07-08] MEDS: Metoprolol Succinate 50 MG Tab.ER PO SCH (08:14)
[2021-07-08] MEDS: glipiZIDE 5 MG Tab PO SCH (08:14)
[2021-07-08] MEDS: Torsemide 20 MG Tab PO SCH ×2 (08:14→17:38)
[2021-07-08] MEDS: Levothyroxine 50 MCG Tab PO SCH (08:14)
[2021-07-08] MEDS: Digoxin 125 MCG Tab PO SCH (08:15)
[2021-07-08] MEDS: BRINZOLAMIDE EYEBOTH SCH ×2 (08:19→19:59)
[2021-07-08] MEDS: Brimonidine Tartrate/Timolol [Combigan 0.2%-0.5% Eye Drop] EYEBOTH SCH ×2 (08:19→19:59)
[2021-07-08] MEDS ORDERED: Albuterol/Ipratropium 3.0-0.5 MG/3 ML Neb Soln NEB PRN (08:50)
[2021-07-08 10:13] LABS: ANION GAP 12.6 mmol/L (5-15)
[2021-07-08] MEDS ORDERED: Furosemide 40 MG/4 ML VIAL IVPUSH ONE (10:15)
[2021-07-08] MEDS ORDERED: Furosemide 40 MG/4 ML VIAL IM ONE (11:00)
[2021-07-08] MEDS: RHOPRESSA 0.02% EYEBOTH SCH (19:59)
[2021-07-08] MEDS: Rivaroxaban 10 MG Tab PO SCH (19:59)
[2021-07-09] MEDS: Albuterol/Ipratropium 3.0-0.5 MG/3 ML Neb Soln NEB SCH ×6 (03:47→22:17)
[2021-07-09 09:05] LABS: ANION GAP 11.6 mmol/L (5-15)
[2021-07-09] MEDS ORDERED: Furosemide 40 MG/4 ML VIAL IM ONE (09:10)
[2021-07-09] MEDS: glipiZIDE 5 MG Tab PO SCH (09:40)
[2021-07-09] MEDS: Lisinopril 5 MG Tab PO SCH (09:41)
[2021-07-09] MEDS: Torsemide 20 MG Tab PO SCH ×2 (09:41→17:30)
[2021-07-09] MEDS: Amiodarone 200 MG Tab PO SCH (09:41)
[2021-07-09] MEDS: Magnesium Oxide 400 MG Tab PO SCH (09:41)
[2021-07-09] MEDS: Metoprolol Succinate 50 MG Tab.ER PO SCH (09:42)
[2021-07-09] MEDS: Digoxin 125 MCG Tab PO SCH (09:42)
[2021-07-09] MEDS: dexAMETHasone 2 MG, dexAMETHasone 4 MG PO SCH ×2 (09:42)
[2021-07-09] MEDS: Levothyroxine 50 MCG Tab PO SCH (09:43)
[2021-07-09] MEDS: BRINZOLAMIDE EYEBOTH SCH ×2 (09:46→20:06)
[2021-07-09] MEDS: Brimonidine Tartrate/Timolol [Combigan 0.2%-0.5% Eye Drop] EYEBOTH SCH ×2 (09:46→20:07)
[2021-07-09] MEDS ORDERED: Insulin Regular, Human 100 Units/ML 3 ML Vial SUBCUT STA (17:46)
[2021-07-09] MEDS: Rivaroxaban 10 MG Tab PO SCH (20:05)
[2021-07-09] MEDS: RHOPRESSA 0.02% EYEBOTH SCH (20:06)
[2021-07-09] MEDS ORDERED: Glucagon,Human Recombinant 1 MG Vial IM PRN (20:21)
[2021-07-09] MEDS ORDERED: 50% Dextrose in Water 50 ML Syringe IVPUSH PRN (20:21)
[2021-07-09] MEDS ORDERED: Insulin Regular, Human 100 Units/ML 3 ML Vial SUBCUT ONE (20:40)
[2021-07-10] MEDS: Albuterol/Ipratropium 3.0-0.5 MG/3 ML Neb Soln NEB SCH ×3 (03:49→12:10)
[2021-07-10] MEDS ORDERED: Potassium Chloride 20 MEQ Tab.ER PO ONE (07:27)
[2021-07-10] MEDS: glipiZIDE 5 MG Tab PO SCH ×2 (07:51→08:30)
[2021-07-10] MEDS: Torsemide 20 MG Tab PO SCH ×2 (07:58→08:30)
[2021-07-10] MEDS: Metoprolol Succinate 50 MG Tab.ER PO SCH (08:00)
[2021-07-10] MEDS: Amiodarone 200 MG Tab PO SCH (08:00)
[2021-07-10] MEDS: Magnesium Oxide 400 MG Tab PO SCH (08:08)
[2021-07-10] MEDS: dexAMETHasone 2 MG, dexAMETHasone 4 MG PO SCH ×2 (08:08)
[2021-07-10] MEDS: Lisinopril 5 MG Tab PO SCH (08:09)
[2021-07-10] MEDS: Digoxin 125 MCG Tab PO SCH (08:09)
[2021-07-10] MEDS: BRINZOLAMIDE EYEBOTH SCH (08:30)
[2021-07-10] MEDS: Brimonidine Tartrate/Timolol [Combigan 0.2%-0.5% Eye Drop] EYEBOTH SCH (08:34)
[2021-07-10] MEDS ORDERED: Potassium Chloride 20 MEQ Tab.ER PO SCH (09:00)
[2021-07-10] MEDS: Levothyroxine 50 MCG Tab PO SCH (09:16)
[2021-07-10 14:49] VITALS: BP 149/99; PULSE 82
== END 2021-07-10 15:30 | disposition home health service (06) | DRG 177 ==
LOC: VM.MS 10:04
PROVIDERS: ADMIT Internal Medicine; ATTEND Internal Medicine
PROC: 3E0DX3Z Introduction of Anti-inflammatory into Mouth and Pharynx, External Approach (ICD-10-PCS; principal; 2021-07-07)
DX: U07.1 COVID-19 (principal); I50.33 Acute on chronic diastolic (congestive) heart failure; J96.01 Acute respiratory failure with hypoxia; I48.91 Unspecified atrial fibrillation; I35.0 Nonrheumatic aortic (valve) stenosis; I27.20 Pulmonary hypertension, unspecified; D64.9 Anemia, unspecified; E83.119 Hemochromatosis, unspecified; I11.0 Hypertensive heart disease with heart failure; E11.65 Type 2 diabetes mellitus with hyperglycemia; T38.0X5A Adverse effect of glucocorticoids and synthetic analogues, initial encounter; E03.9 Hypothyroidism, unspecified; D69.6 Thrombocytopenia, unspecified; Z28.310 Unvaccinated for COVID-19; Z88.0 Allergy status to penicillin; Z79.01 Long term (current) use of anticoagulants; Z79.890 Hormone replacement therapy; Z79.899 Other long term (current) drug therapy
CPT/HCPCS: 0240U; 36415; 71045; 71046; 80048; 80053; 81001; 82728; 82947; 83615; 83735; 83880; 84484; 85025; 86140; 93005; 94640; 94760; 97110-GP; 97116-GP; 97162-GP; 97530-GP; A9270-GY; J1160; J1815-GY; J1940; J7620-GY; J8540

== ENCOUNTER 2021-07-18 16:28 | Inpatient (IN) | payer MEDICARE, OTHER ==
[2021-07-18] MEDS ORDERED: Albuterol/Ipratropium 3.0-0.5 MG/3 ML Neb Soln NEB PRN (16:34)
[2021-07-18] MEDS ORDERED: Sodium Chloride 0.9% 10 ML Syringe FLUSH PRN (16:34)
[2021-07-18] MEDS ORDERED: Acetaminophen 325 MG Tab PO PRN (16:34)
[2021-07-18] MEDS ORDERED: Promethazine 6.25 MG in Sodium Chloride 0.9% 100 ML IV PRN (16:34)
[2021-07-18] MEDS ORDERED: cefTRIAXone 1 GM Vial IVPUSH ONE (16:37)
[2021-07-18] MEDS ORDERED: Hypromellose 0.3% Ophth Soln 15 ML Bottle EYEBOTH PRN (16:37)
[2021-07-18] MEDS: Rivaroxaban 10 MG Tab PO SCH (20:23)
[2021-07-18] MEDS: Albuterol/Ipratropium 3.0-0.5 MG/3 ML Neb Soln NEB SCH (20:23)
[2021-07-18] MEDS: Nystatin Crm 30 GM Tube TOP SCH (20:36)
[2021-07-19] MEDS ORDERED: Sodium Chloride 0.9% 1,000 ML IV SCH (02:45)
[2021-07-19] MEDS: Albuterol/Ipratropium 3.0-0.5 MG/3 ML Neb Soln NEB SCH ×4 (03:55→20:01)
[2021-07-19 07:08] LABS: ANION GAP 8.6 mmol/L (5-15)
[2021-07-19] MEDS: Nystatin Crm 30 GM Tube TOP SCH ×2 (09:00→20:02)
[2021-07-19] MEDS: EYE EYEBOTH SCH ×3 (09:00→20:05)
[2021-07-19] MEDS: BRINZOLAMIDE EYEBOTH SCH ×3 (09:00→20:06)
[2021-07-19] MEDS: TIMOLOL EYEBOTH SCH ×3 (09:00→20:05)
[2021-07-19] MEDS: BRIMONIDINE EYEBOTH SCH ×3 (09:00→20:05)
[2021-07-19] MEDS ORDERED: Dexamethasone 2 MG Tab PO SCH (09:00)
[2021-07-19] MEDS ORDERED: glipiZIDE 5 MG Tab PO SCH (09:00)
[2021-07-19] MEDS: Amiodarone 200 MG Tab PO SCH (09:53)
[2021-07-19] MEDS: Metoprolol Succinate 50 MG Tab.ER PO SCH (09:53)
[2021-07-19] MEDS: Magnesium Oxide 400 MG Tab PO SCH (09:54)
[2021-07-19] MEDS: Levothyroxine 50 MCG Tab PO SCH (09:54)
[2021-07-19] MEDS: Digoxin 125 MCG Tab PO SCH (09:54)
[2021-07-19] MEDS: Lisinopril 5 MG Tab PO SCH (09:55)
[2021-07-19] MEDS: cefTRIAXone 1 GM Vial IVPUSH SCH (14:00)
[2021-07-19] MEDS: glipiZIDE 5 MG Tab.ER PO SCH (18:45)
[2021-07-19] MEDS: NETARSUDIL MESYLATE EYEBOTH SCH ×2 (20:05→20:06)
[2021-07-19] MEDS: Rivaroxaban 10 MG Tab PO SCH (20:07)
[2021-07-19] MEDS ORDERED: Glucagon,Human Recombinant 1 MG Vial IM PRN (21:35)
[2021-07-19] MEDS ORDERED: Insulin Lispro 100 Units/ML 3 ML Vial SUBCUT ONE (21:35)
[2021-07-19] MEDS ORDERED: 50% Dextrose in Water 50 ML Syringe IVPUSH PRN (21:35)
[2021-07-20] MEDS: Albuterol/Ipratropium 3.0-0.5 MG/3 ML Neb Soln NEB SCH ×4 (03:31→18:16)
[2021-07-20 07:05] LABS: ANION GAP 11.9 mmol/L (5-15)
[2021-07-20] MEDS ORDERED: Glucagon,Human Recombinant 1 MG Vial IM PRN (08:40)
[2021-07-20] MEDS ORDERED: 50% Dextrose in Water 50 ML Syringe IVPUSH PRN (08:40)
[2021-07-20] MEDS ORDERED: Dexamethasone 4 MG Tab PO SCH (09:00)
[2021-07-20] MEDS: Nystatin Crm 30 GM Tube TOP SCH ×2 (09:12→20:28)
[2021-07-20] MEDS: Doxycycline 100 MG Cap PO SCH ×2 (09:15→20:26)
[2021-07-20] MEDS: Levothyroxine 50 MCG Tab PO SCH (09:15)
[2021-07-20] MEDS: Metoprolol Succinate 50 MG Tab.ER PO SCH (09:16)
[2021-07-20] MEDS: Torsemide 20 MG Tab PO SCH (09:18)
[2021-07-20] MEDS: glipiZIDE 5 MG Tab.ER PO SCH (09:18)
[2021-07-20] MEDS: Lisinopril 5 MG Tab PO SCH (09:18)
[2021-07-20] MEDS: Magnesium Oxide 400 MG Tab PO SCH (09:18)
[2021-07-20] MEDS: Digoxin 125 MCG Tab PO SCH (09:18)
[2021-07-20] MEDS: Amiodarone 200 MG Tab PO SCH (09:19)
[2021-07-20] MEDS: cefTRIAXone 1 GM Vial IVPUSH SCH (09:20)
[2021-07-20] MEDS: TIMOLOL EYEBOTH SCH ×2 (09:30→20:28)
[2021-07-20] MEDS: EYE EYEBOTH SCH ×2 (09:30→20:28)
[2021-07-20] MEDS: BRIMONIDINE EYEBOTH SCH ×2 (09:30→20:28)
[2021-07-20] MEDS: BRINZOLAMIDE EYEBOTH SCH ×2 (09:30→20:28)
[2021-07-20] MEDS: Insulin Glarg,Human.Rec.Analog 100 Unit/ML SUBCUT SCH (09:48)
[2021-07-20] MEDS: Rivaroxaban 10 MG Tab PO SCH (20:26)
[2021-07-20] MEDS: NETARSUDIL MESYLATE EYEBOTH SCH (20:30)
[2021-07-21] MEDS: Albuterol/Ipratropium 3.0-0.5 MG/3 ML Neb Soln NEB SCH ×2 (02:12→06:07)
[2021-07-21] MEDS: Doxycycline 100 MG Cap PO SCH (08:35)
[2021-07-21] MEDS: Magnesium Oxide 400 MG Tab PO SCH (08:35)
[2021-07-21] MEDS: Lisinopril 5 MG Tab PO SCH (08:35)
[2021-07-21] MEDS: Levothyroxine 50 MCG Tab PO SCH (08:35)
[2021-07-21] MEDS: Digoxin 125 MCG Tab PO SCH (08:36)
[2021-07-21] MEDS: Amiodarone 200 MG Tab PO SCH (08:37)
[2021-07-21] MEDS: Metoprolol Succinate 50 MG Tab.ER PO SCH (08:38)
[2021-07-21 08:42] VITALS: BP 124/88; PULSE 97
[2021-07-21] MEDS: glipiZIDE 5 MG Tab.ER PO SCH (08:42)
[2021-07-21] MEDS: BRINZOLAMIDE EYEBOTH SCH (08:51)
[2021-07-21] MEDS: Torsemide 20 MG Tab PO SCH (08:52)
[2021-07-21] MEDS: EYE EYEBOTH SCH (08:53)
[2021-07-21] MEDS: TIMOLOL EYEBOTH SCH (08:53)
[2021-07-21] MEDS: BRIMONIDINE EYEBOTH SCH (08:53)
[2021-07-21] MEDS: Insulin Glarg,Human.Rec.Analog 100 Unit/ML SUBCUT SCH (08:54)
[2021-07-21] MEDS: Nystatin Crm 30 GM Tube TOP SCH (08:57)
[2021-07-21] MEDS ORDERED: Dexamethasone 4 MG Tab PO SCH (09:00)
[2021-07-21] MEDS ORDERED: Amoxicillin/Clavulanate K 875-125 MG Tab PO SCH (09:00)
[2021-07-21] MEDS: cefTRIAXone 1 GM Vial IVPUSH SCH (09:01)
== END 2021-07-21 10:05 | disposition home or self-care (01) | DRG 193 ==
LOC: VM.MS 16:28
PROVIDERS: ADMIT Internal Medicine; ATTEND Internal Medicine
DX: J18.9 Pneumonia, unspecified organism (principal); J96.21 Acute and chronic respiratory failure with hypoxia; I50.32 Chronic diastolic (congestive) heart failure; E87.0 Hyperosmolality and hypernatremia; I48.91 Unspecified atrial fibrillation; E78.2 Mixed hyperlipidemia; Z86.16 Personal history of COVID-19; E11.65 Type 2 diabetes mellitus with hyperglycemia; T38.0X5A Adverse effect of glucocorticoids and synthetic analogues, initial encounter; I27.20 Pulmonary hypertension, unspecified; D64.9 Anemia, unspecified; I11.0 Hypertensive heart disease with heart failure; I95.9 Hypotension, unspecified; E03.9 Hypothyroidism, unspecified; H91.90 Unspecified hearing loss, unspecified ear; E83.119 Hemochromatosis, unspecified; I35.0 Nonrheumatic aortic (valve) stenosis; Z79.4 Long term (current) use of insulin
CPT/HCPCS: 36415; 71045; 80048; 80076; 81001; 82803; 82947; 83605; 83735; 85025; 86140; 87040; 87070; 87086; 87205; 93005; 94640; A9270-GY; J0696; J1815-GY; J7030; J7620-GY; J8540